=== PATIENT | female | born 1975 | race Hispanic/Latino ===

== ENCOUNTER 2017-10-03 23:05 | Emergency (ER) | payer BC ==
[2017-10-03] MEDS ORDERED: Sodium Chloride 0.9% 1,000 ML IV STA (23:51)
[2017-10-04 00:41] LABS: BASO % 0.3 % (0.0-2.0); EOS # 0.1 K/uL (0.0-0.7); HEMOGLOBIN 13.3 g/dL (12.0-16.0); LYMPH # 2.3 K/uL (1.0-4.3); LYMPH % 17.1 % (20.0-40.0); MEAN CELL VOLUME 90.2 fl (81.0-99.0); MEAN CORPUSCULAR HEMOGLOBIN 30.8 pg (27.0-31.0); MEAN CORPUSCULAR HGB CONC 34.1 g/dL (33.0-37.0); MONO # 1.1 K/uL (0.0-0.8); MONO % 8.5 % (0.0-10.0); NEUT # 9.8 K/uL (1.8-7.0); NEUT % 73.1 % (50.0-75.0); RBC 4.32 Mil/uL (3.80-5.20); RED CELL DISTRIBUTION WIDTH 14.3 % (11.5-14.5); WHITE BLOOD COUNT 13.4 K/uL (4.8-10.8)
[2017-10-04 00:54] LABS: ALB/GLOB RATIO 1.4 (1.0-2.1); ALT/SGPT 28 U/L (9-52); AST/SGOT 18 U/L (14-36); BLOOD UREA NITROGEN 12 mg/dl (7-17); CALCIUM 9.2 mg/dL (8.4-10.2); GFR AFRICAN-AMERICAN > 60; GFR NON-AFRICAN AMERICAN > 60
[2017-10-04 00:55] LABS: PARTIAL THROMBOPLASTIN TIME 35.2 Seconds (25.6-37.1); PROTHROMBIN TIME 11.5 Seconds (9.8-13.1)
[2017-10-04] MEDS ORDERED: Sodium Chloride 0.9% 1,000 ML IV STA (02:08)
--- NOTE | 2017-10-04 02:34 | ED PDOC ---
HPI: Female Pain Time Seen by Provider: 10/03/17 23:46 Chief Complaint (Nursing): Female Genitourinary Chief Complaint (Provider): Female Genitourinary History Per: Patient History/Exam Limitations: no limitations Onset/Duration Of Symptoms: Days (x 5) Current Symptoms Are (Timing): Still Present Additional Complaint(s): 42 year old, 10-week female presents to the ED complaining of vaginal bleeding and worsen abdominal pain for the past 5 days. Patient states bleeding has been heavier with large vcolts. She reports she has been seen by her OBGYN, Dr. Jones, who told her she is carrying twin and advised her that she has early miscarriage. She currently denies any fever, chills, and offers no other medical complaints. Past Medical History Reviewed: Historical Data, Nursing Documentation, Vital Signs Vital Signs: Last Vital Signs Temp 98.5 F 10/03/17 23:13 Pulse 123 H 10/03/17 23:13 Resp 22 10/03/17 23:13 BP 147/86 10/03/17 23:13 Pulse Ox 96 10/03/17 23:13 - Medical History PMH: No Chronic Diseases - Surgical History Surgical History: No Surg Hx - Family History Family History: States: Unknown Family Hx - Social History Current smoker - smoking cessation education provided: No Alcohol: None Drugs: Denies - Allergies Allergies/Adverse Reactions: Allergies Allergy/AdvReac Type Severity Reaction Status Date / Time codeine Allergy RASH Verified 10/03/17 23:17 Review of Systems ROS Statement: Except As Marked, All Systems Reviewed And Found Negative Constitutional: Negative for: Fever, Chills Gastrointestinal: Positive for: Abdominal Pain Genitourinary Female: Positive for: Vaginal Bleeding Physical Exam - Reviewed Nursing Documentation Reviewed: Yes Vital Signs Reviewed: Yes - Physical Exam Appears: Positive for: Uncomfortable Head Exam: Positive for: ATRAUMATIC, NORMOCEPHALIC Skin: Positive for: Normal Color, Warm, Dry Eye Exam: Positive for: Normal appearance Neck: Positive for: Normal, Supple Cardiovascular/Chest: Positive for: Regular Rate, Rhythm. Negative for: Murmur Respiratory: Positive for: Normal Breath Sounds. Negative for: Wheezing Gastrointestinal/Abdominal: Positive for: Soft, Tenderness (diffused lower abdominal tenderness) Back: Positive for: Normal Inspection Extremity: Positive for: Normal ROM. Negative for: Deformity, Swelling Neurologic/Psych: Positive for: Alert, Oriented. Negative for: Motor/Sensory Deficits - Laboratory Results Result Diagrams: 10/04/17 00:20 10/04/17 00:20 - ECG O2 Sat by Pulse Oximetry: 96 (RA) Pulse Ox Interpretation: Normal Medical Decision Making Medical Decision Making: Initial Impression: 42 years old female with heavy vaginal bleeding and abdominal pain insetting early . Initial Plan: --Abo/Rh Type --Beta- HCG --CMP --Urine dipstick --CBC --PTT --PTT --NaCl 1,000 ml IV --Cytology --OB TV US --Transvaginal US ___ Time: 0140 Called by evaluation, patient reportedly having large clots vs product just outside vagina, which was removed and submitted for pathology. Time: 234 Obstetrics US FINDINGS: Gestation: 1.1 x 0.6 x 0.8 cm saclike structure within uterine fundus. No yolk sac. No pole. 0.5 x 0.3 x 0.5 saclike structure within lower uterine segment uterus. No yolk sac. No pole. Uterus/cervix: Retroverted uterus. No subchorionic hemorrhage. Closed cervix. Ovaries: RIGHT ovary: Normal. LEFT ovary: Probable 2.2 x 1.4 x 1.6 cm corpus luteal cyst. No adnexal masses. Free fluid: No significant free fluid. IMPRESSION: 1. Sac without pole or yolk sac within uterine fundus. DDX: Early IUP, blighted ovum, ectopic (with pseudogestational sac). Followup is recommended. 2. Sac without pole or yolk sac within lower uterine segment. DDX: Early IUP with low implantation, blighted ovum, ectopic (with pseudogestational sac). Followup is recommended. 3. Incidental/non-acute findings are described above. Time: 244 Discussed ultrasound findings with Dr. Nick Eaton, LINE [employer] hospitalist, who will evaluate patient at bedside. Time: 419 Patient to be discharged home and instructed to follow up with her OBGYN Dr. Jones. Patient is agreeable with plan and is stable for discharge home. Scribe Attestation: Documented by Carmenza Singh, acting as a scribe for Andres Jo MD. Provider Scribe Attestation: All medical record entries made by the Scribe were at my direction and personally dictated by me. I have reviewed the chart and agree that the record accurately reflects my personal performance of the history, physical exam, medical decision making, and the department course for this patient. I have also personally directed, reviewed, and agree with the discharge instructions and disposition. Disposition - Clinical Impression Clinical Impression: Threatened miscarriage in early - Disposition Referrals: Niya Jones MD [Medical Doctor] - Disposition Time: 04:31 Condition: STABLE Instructions: Threatened Miscarriage, Bleeding With Forms: [employer] ([place])
--- NOTE | 2017-10-04 02:36 | US ---
EXAM: US First Trimester, Transabdominal US , Transvaginal CLINICAL HISTORY: 42 years old, female; Pain; complicated by abdominal or pelvic pain; Lower; First trimester; Gestational age or lmp: 07/24/2017; ; Additional info: Vag bldg in TECHNIQUE: Real-time transabdominal and transvaginal obstetrical ultrasound of the maternal pelvis and a first trimester with image documentation. Transvaginal imaging was used for better evaluation of the fetus and adnexa. COMPARISON: No relevant prior studies available. FINDINGS: Gestation: 1.1 x 0.6 x 0.8 cm saclike structure within uterine fundus. No yolk sac. No pole. 0.5 x 0.3 x 0.5 saclike structure within lower uterine segment uterus. No yolk sac. No pole. Uterus/cervix: Retroverted uterus. No subchorionic hemorrhage. Closed cervix. Ovaries: RIGHT ovary: Normal. LEFT ovary: Probable 2.2 x 1.4 x 1.6 cm corpus luteal cyst. No adnexal masses. Free fluid: No significant free fluid. IMPRESSION: 1. Sac without pole or yolk sac within uterine fundus. DDX: Early IUP, blighted ovum, ectopic (with pseudogestational sac). Followup is recommended. 2. Sac without pole or yolk sac within lower uterine segment. DDX: Early IUP with low implantation, blighted ovum, ectopic (with pseudogestational sac). Followup is recommended. 3. Incidental/non-acute findings are described above.
--- NOTE | 2017-10-04 03:34 | CP.PCM.CON ---
Review of Systems - Constitutional Constitutional: As Per HPI - EENT Nose/Mouth/Throat: As Per HPI - Breasts Breasts: As Per HPI - Cardiovascular Cardiovascular: As Per HPI - Respiratory Respiratory: As Per HPI - Gastrointestinal Gastrointestinal: As Per HPI - Genitourinary Genitourinary: As Per HPI - Reproductive: Female Reproductive:Female: As Per HPI - Menstruation Menstruation: As Per HPI Past Patient History - Past Social History Alcohol: None Drugs: Denies - PSYCHIATRIC Hx Substance Use: No - SURGICAL HISTORY Other/Comment: knee surgery Meds Allergies/Adverse Reactions: Allergies Allergy/AdvReac Type Severity Reaction Status Date / Time codeine Allergy RASH Verified 10/03/17 23:17 Physical Exam - Head Exam Head Exam: ATRAUMATIC - Eye Exam Eye Exam: Normal appearance - ENT Exam ENT Exam: Mucous Membranes Moist - Respiratory Exam Respiratory Exam: Clear to Auscultation Bilateral - Cardiovascular Exam Cardiovascular Exam: REGULAR RHYTHM - GI/Abdominal Exam GI & Abdominal Exam: Normal Bowel Sounds - Exam Additional comments: normal external female g blood noted on the external vulva a urethra normalspeculum was inserted in products of conception note and removed with a sponge stick cervix small scant amount of bloodr no adnexal masses uterus nontender Results - Vital Signs Recent Vital Signs: Last Vital Signs Temp 98.5 F 10/03/17 23:13 Pulse 89 10/04/17 02:46 Resp 22 10/04/17 02:46 BP 119/69 10/04/17 02:46 Pulse Ox 96 10/04/17 03:10 - Labs Result Diagrams: 10/04/17 00:20 10/04/17 00:20 Labs: Laboratory Results - last 24 hr 10/04/17 10/04/17 10/04/17 00:20 00:20 00:20 WBC 13.4 H RBC 4.32 Hgb 13.3 Hct 38.9 MCV 90.2 MCH 30.8 MCHC 34.1 RDW 14.3 Plt Count 366 MPV 7.0 L Neut % (Auto) 73.1 Lymph % (Auto) 17.1 L Tucker % (Auto) 8.5 Eos % (Auto) 1.0 Baso % (Auto) 0.3 Neut # (Auto) 9.8 H Lymph # (Auto) 2.3 Tucker # (Auto) 1.1 H Eos # (Auto) 0.1 Baso # (Auto) 0.0 PT 11.5 INR 1.0 APTT 35.2 Sodium 143 Potassium 3.8 Chloride 103 Carbon Dioxide 23 Anion Gap 21 H BUN 12 Creatinine 0.6 L Est GFR ( Amer) > 60 Est GFR (Non-Af Amer) > 60 Random Glucose 93 Calcium 9.2 Total Bilirubin 0.3 AST 18 ALT 28 Alkaline Phosphatase 64 Total Protein 7.0 Albumin 4.0 Globulin 3.0 Albumin/Globulin Ratio 1.4 Beta HCG, Quant Blood Type Antibody Screen BBK History Checked 10/04/17 10/04/17 00:20 01:00 WBC RBC Hgb Hct MCV MCH MCHC RDW Plt Count MPV Neut % (Auto) Lymph % (Auto) Tucker % (Auto) Eos % (Auto) Baso % (Auto) Neut # (Auto) Lymph # (Auto) Tucker # (Auto) Eos # (Auto) Baso # (Auto) PT INR APTT Sodium Potassium Chloride Carbon Dioxide Anion Gap BUN Creatinine Est GFR ( Amer) Est GFR (Non-Af Amer) Random Glucose Calcium Total Bilirubin AST ALT Alkaline Phosphatase Total Protein Albumin Globulin Albumin/Globulin Ratio Beta HCG, Quant 5933.70 Blood Type O POSITIVE Antibody Screen Negative BBK History Checked No verified bt Assessment & Plan - Assessment and Plan (Free Text) Assessment: status post post complete Discharge patient home Follow up with PMD with appointment on Specimens sent to patholology Patient's questions answered
[2017-10-04 04:21] VITALS: BP 114/66; PULSE 94; RESP 16; TEMP 99.4
[2017-10-04 22:23] VITALS: O2SAT 96
== END 2017-10-04 04:30 | disposition home or self-care (01) ==
LOC: H.ER 23:05
DX: O20.0 Threatened abortion (principal); Z3A.10 10 weeks gestation of pregnancy
CPT/HCPCS: 76805; 76817; 80053; 84702; 85025; 85610; 85730; 86850; 86900; 96361; 96374; 96375; 99285; J2270; J2405; J7040

== ENCOUNTER 2017-10-05 15:54 | Emergency (ER) | payer BC ==
--- NOTE | 2017-10-05 16:21 | ED PDOC ---
HPI: General Adult Time Seen by Provider: 10/05/17 16:02 Chief Complaint (Nursing): Abnormal Labs Chief Complaint (Provider): repeat labs History Per: Patient Additional Complaint(s): 42-year-old female presents to emergency room for repeat beta quant. Patient has seen 2 days ago for threatened miscarriage. At that time she was having heavy bleeding and pain. Patient still does have some bleeding but it is not as heavy today. Pain has decreased, no fever or chills. Patient has an appointment tomorrow with her OB but she was instructed by her OB to come to ED today for repeat labs. OB: Dr. Pily Jones Past Medical History Reviewed: Historical Data, Nursing Documentation, Vital Signs Vital Signs: Last Vital Signs Temp 97.7 F 10/05/17 15:56 Pulse 93 H 10/05/17 15:56 Resp 16 10/05/17 15:56 BP 126/86 10/05/17 15:56 Pulse Ox 100 10/05/17 16:21 - Medical History PMH: No Chronic Diseases Other PMH: - Family History Family History: States: No Known Family Hx - Living Arrangements Living Arrangements: With Family - Social History Current smoker - smoking cessation education provided: No Alcohol: None Drugs: Denies - Allergies Allergies/Adverse Reactions: Allergies Allergy/AdvReac Type Severity Reaction Status Date / Time codeine Allergy RASH Verified 10/03/17 23:17 Review of Systems ROS Statement: Except As Marked, All Systems Reviewed And Found Negative Constitutional: Negative for: Fever Genitourinary Female: Positive for: Vaginal Bleeding (mild, improved), Pelvic Pain (mild, improved) Physical Exam - Reviewed Nursing Documentation Reviewed: Yes Vital Signs Reviewed: Yes - Physical Exam Appears: Positive for: Well, Non-toxic, No Acute Distress Skin: Negative for: Rash Eye Exam: Positive for: Normal appearance Cardiovascular/Chest: Positive for: Regular Rate, Rhythm Respiratory: Positive for: Normal Breath Sounds Gastrointestinal/Abdominal: Positive for: Soft. Negative for: Tenderness, Distended, Guarding, Rebound Back: Negative for: L CVA Tenderness, R CVA Tenderness Neurologic/Psych: Positive for: Alert, Oriented - ECG O2 Sat by Pulse Oximetry: 100 Pulse Ox Interpretation: Normal Medical Decision Making Medical Decision Makin42 year old here for repeat labs Plan: Beta quant Beta from 10/04 - 5933.70 Beta from today - Patient given copy of labs. She was offered repeat US but declined stating she will have US at OB office tomorrow. Patient was advised to keep her appt with OB and is aware she can RTED at any time if acutely worse. Disposition - Clinical Impression Clinical Impression: Threatened miscarriage in early - Patient ED Disposition Is Patient to be Admitted: No Counseled Patient/Family Regarding: Need For Followup - Disposition Referrals: Niya Jones MD [Medical Doctor] - Disposition: Routine/Home Disposition Time: 16:58 Condition: STABLE Additional Instructions: FOLLOW UP TOMORROW WITH OB. Instructions: Threatened Miscarriage (DC) Forms: [employer] (Burmese)
[2017-10-05 17:41] VITALS: BP 118/70; PULSE 76; RESP 18; TEMP 98; O2SAT 99
== END 2017-10-05 17:40 | disposition home or self-care (01) ==
LOC: H.ER 15:54
DX: O20.0 Threatened abortion (principal)